=== PATIENT | female | born 1965 | race Caucasian/White ===

== ENCOUNTER 2019-04-03 12:31 | Emergency (ER) | payer SELFPAY ==
[2019-04-03 12:49] VITALS: BP 123/70
--- NOTE | 2019-04-03 13:09 | UC ---
Epistaxis Nasal HPI - HPI Summary HPI Summary: nose bleed x 3 days started on left nostril and then right side the day after no known injury , no hx of bleeding disorder, not on any blood thinner bleed lasts for 30 min, improves with applying pressure no headaches - History of Current Complaint Chief Complaint: UCGeneralIllness Stated Complaint: PERSISTANT BLOODY NOSE Time Seen by Provider: 04/03/19 12:41 Hx Obtained From: Patient Onset/Duration: Sudden Onset, Lasting Days - 3, Resolved Timing: Intermittent Episode Lasting - 30 min Severity Initially: Moderate Severity Currently: Moderate Pain Intensity: 0 Character: Heavy Aggravating Factor(s): Nothing Alleviating Factor(s): Pressure, Ice Associated Signs And Symptoms: Negative: Bruising, Hematuria, Hematochezia, Sinus Pain, Nasal Discharge, Recent Abnormal Coagulation Studies, Foreign Body - Allergies/Home Medications Allergies/Adverse Reactions: Allergies Allergy/AdvReac Type Severity Reaction Status Date / Time No Known Allergies Allergy Verified 04/03/19 12:49 Home Medications: Home Medications NK [No Home Medications Reported] 04/03/19 [History Confirmed 04/03/19] PMH/Surg Hx/FS Hx/Imm Hx Previously Healthy: Yes - Surgical History Surgical History: None - Family History Known Family History: Negative: Diabetes - Social History Alcohol Use: None Substance Use Type: Excessive Caffeine Smoking Status (MU): Current Every Day Smoker Amount Used/How Often: 1/2 ppd Length of Time of Smoking/Using Tobacco: 32 years Review of Systems All Other Systems Reviewed And Are Negative: Yes Constitutional: Positive: Negative Skin: Positive: Negative Eyes: Positive: Negative ENT: Positive: Epistaxis Respiratory: Positive: Negative Is Patient Immunocompromised?: No Physical Exam Triage Information Reviewed: Yes Appearance: Well-Appearing, No Pain Distress, Well-Nourished Vital Signs: Initial Vital Signs Temp 97.9 F 04/03/19 12:42 Pulse 76 04/03/19 12:42 Resp 18 04/03/19 12:42 BP 123/70 04/03/19 12:42 Pulse Ox 99 04/03/19 12:42 Vital Signs Reviewed: Yes Eyes: Positive: Conjunctiva Clear ENT: Positive: Other - no bleeding noted on the exam. Negative: Nasal congestion, Nasal drainage Neck: Positive: Supple, Nontender, No Lymphadenopathy Respiratory: Positive: Chest non-tender, Lungs clear, Normal breath sounds, No respiratory distress Cardiovascular: Positive: RRR, No Murmur, Pulses Normal Skin Exam: Normal Epistaxis Nasal Course/Dx - Differential Dx/Diagnosis Provider Diagnosis: Epistaxis Discharge - Sign-Out/Discharge Documenting (check all that apply): Patient Departure All imaging exams completed and their final reports reviewed: No Studies - Discharge Plan Condition: Stable Disposition: HOME Patient Education Materials: Nosebleed (ED) Forms: *Work Release Referrals: No Primary Care Phys,NOPCP [Primary Care Provider] - If Needed Additional Instructions: no active nose bleed now apply pressure if having a nose bleed and go to ED may use nasal saline one spray both nostril 4 x per day - Billing Disposition and Condition Condition: STABLE Disposition: Home
== END 2019-04-03 13:10 | disposition home or self-care (01) ==
LOC: UCCORT 12:31
DX: R04.0 Epistaxis (principal); F17.210 Nicotine dependence, cigarettes, uncomplicated
CPT/HCPCS: 99201; G0463

== ENCOUNTER 2019-07-26 16:59 | Emergency (ER) | payer OTHER ==
[2019-07-26 17:24] VITALS: BP 132/79
[2019-07-26] MEDS ORDERED: Acetaminophen TAB* 325 MG PO ONE (17:34)
--- NOTE | 2019-07-26 17:45 | UC ---
Minor Trauma HPI - HPI Summary HPI Summary: Patient is a 53-year-old female presenting with complaints of lower back pain, left wrist pain, left shoulder pain, and right great toe pain after she slipped in a puddle of water at work an hour ago. Patient notes she is sore and "does not believe anything is broken." Describes pain as sore and nonradiating. Denies any numbness and tingling. Denies decreased ROM and strength. Denies difficulty ambulating. Denies incontinence. Denies hitting her head. - History of Current Complaint Chief Complaint: UCGeneralIllness Stated Complaint: FALL, TAILBONE PAIN, LEFT ARM INJURY-WC Time Seen by Provider: 07/26/19 17:05 Hx Obtained From: Patient Onset/Duration: Sudden Onset Severity Currently: Severe Pain Intensity: 8 - Allergies/Home Medications Allergies/Adverse Reactions: Allergies Allergy/AdvReac Type Severity Reaction Status Date / Time No Known Allergies Allergy Verified 07/26/19 17:18 PMH/Surg Hx/FS Hx/Imm Hx - Surgical History Surgical History: None - Family History Known Family History: Positive: Non-Contributory Negative: Diabetes - Social History Occupation: Employed Full-time Alcohol Use: None Substance Use Type: None Smoking Status (MU): Current Every Day Smoker Amount Used/How Often: 1/2 ppd Length of Time of Smoking/Using Tobacco: 32 years Review of Systems All Other Systems Reviewed And Are Negative: No Skin: Positive: Negative. Negative: Bruising Respiratory: Positive: Negative Cardiovascular: Positive: Negative Gastrointestinal: Positive: Negative Motor: Positive: Negative Neurovascular: Positive: Negative Musculoskeletal: Positive: Arthralgia - lower back pain, L wrist pain, L shoulder pain, Myalgia - lower back muscle pain b/l. Negative: Decreased ROM, Edema Neurological: Negative: Weakness, Paresthesia, Numbness Physical Exam Triage Information Reviewed: Yes Appearance: Well-Appearing, No Pain Distress, Well-Nourished Vital Signs: Initial Vital Signs Temp 97.5 F 07/26/19 17:19 Pulse 77 07/26/19 17:19 Resp 16 07/26/19 17:19 BP 132/79 07/26/19 17:19 Pulse Ox 97 07/26/19 17:19 Vital Signs Reviewed: Yes Eyes: Positive: Conjunctiva Clear ENT: Positive: Hearing grossly normal Neck: Positive: Supple Respiratory Exam: Normal Respiratory: Positive: Lungs clear, Normal breath sounds, No respiratory distress Cardiovascular Exam: Normal Cardiovascular: Positive: RRR, Pulses Normal - strong radial, pedal, ankle pulses b/l, Brisk Capillary Refill Musculoskeletal: Positive: Strength Intact, ROM Intact, No Edema, Other: - midline tenderness of lumbar spine. pain with active L wrist flexion, extension. no pain on examination of R great toe or R shoulder Neurological: Positive: Alert, Muscle Tone Normal Psychological: Positive: Age Appropriate Behavior Skin Exam: Normal - no erythema or ecchymosis Diagnostics - Radiology lumbarsacral Radiology Interpretation Completed By: Radiologist Summary of Radiographic Findings: IMPRESSION: There is levoscoliosis centered at L2-L3. No fracture is identified. Minor Trauma Course/Dx - Course Course Of Treatment: Lumbar x-rays negative for fracture. Discussed this with patient. Patient received Tylenol and ice here, noting relief afterward. I instructed the patient to continue with symptomatic treatment and to follow-up with Dr. Sher for Worker's Comp. and further evaluation and release back to work. Instructed to go to ED for worsening symptoms. Patient voiced understanding and agreed with treatment plan. - Differential Dx/Diagnosis Provider Diagnosis: Acute low back pain due to trauma, Acute pain of left wrist Discharge ED - Sign-Out/Discharge Documenting (check all that apply): Patient Departure All imaging exams completed and their final reports reviewed: Yes - Discharge Plan Condition: Stable Disposition: HOME Patient Education Materials: Back Pain (ED) Forms: *Work Release Referrals: Clif Sher MD [Medical Doctor] - As Soon As Possible Additional Instructions: As dicussed, the xrays of your back did not show any fractures. You will likely be sore from your fall from the next several days. Rest, ice and/or heat to help relieve pain. You may continue to take tylenol and/or ibuprofen as directed for pain relief. Follow up with Dr. Sher for further evaluation and to be released for work. Go to the Emergency Room if you experience severe pain or worsening symptoms. - Billing Disposition and Condition Condition: STABLE Disposition: Home
== END 2019-07-26 18:34 | disposition home or self-care (01) ==
LOC: UCCORT 16:59
DX: M54.5 Low back pain (principal); M25.532 Pain in left wrist; M25.512 Pain in left shoulder; M25.572 Pain in left ankle and joints of left foot; F17.210 Nicotine dependence, cigarettes, uncomplicated; W01.0XXA Fall on same level from slipping, tripping and stumbling without subsequent striking against object, initial encounter
CPT/HCPCS: 72110; 99212; A9270-GY; G0463